=== PATIENT | male | born 1980 ===

== ENCOUNTER 2023-04-20 04:10 | Day surgery (SDC) | payer OTHER ==
[2023-04-20 10:35] VITALS: BMI 31.5
[2023-04-20] MEDS ORDERED: MIDAZOLAM HCL 2 MG/2 ML SINGLE DOSE VIAL ONE (12:58)
[2023-04-20] MEDS ORDERED: FENTANYL CITRATE/PF 50 MCG/ML VIAL ONE ×6 (12:58→15:00)
[2023-04-20] MEDS ORDERED: PROPOFOL 20 ML ONE ×2 (12:58→13:09)
[2023-04-20] MEDS ORDERED: ceFAZolin SODIUM 1 GM VIAL ONE (13:16)
[2023-04-20] MEDS ORDERED: ceFAZolin SODIUM 1 GM VIAL IVPB ONE (13:18)
[2023-04-20] MEDS ORDERED: ONDANSETRON 4 MG/2 ML VIAL ONE (13:24)
[2023-04-20] MEDS ORDERED: DEXAMETHASONE SOD PHOSPHATE 4 MG/1 ML VIAL ONE (13:24)
[2023-04-20] MEDS ORDERED: KETOROLAC TROMETHAMINE 30 MG/1 ML VIAL ONE (13:53)
[2023-04-20] MEDS ORDERED: ACETAMINOPHEN INJECTION 100 ML IVPB ONE (13:56)
[2023-04-20] MEDS ORDERED: ACETAMINOPHEN 1000 MG/100 ML BAG IVPB ONE (14:01)
[2023-04-20] MEDS ORDERED: BACITRACIN ZINC 15 GM TUBE TOPICAL OINTMENT TP ONE (14:13)
[2023-04-20] MEDS ORDERED: ONDANSETRON 4 MG/2 ML VIAL IVPUSH PRN (14:43)
[2023-04-20] MEDS ORDERED: oxyCODONE HCL 5 MG TABLET PO PRN (14:43)
[2023-04-20] MEDS ORDERED: LACTATED RINGERS SOLUTION 1,000 ML IV SCH (14:45)
[2023-04-20 16:12] VITALS: TEMP 98
[2023-04-20] MEDS ORDERED: oxyCODONE HCL 5 MG TABLET ONE (16:26)
[2023-04-20 18:31] VITALS: BP 118/72; PULSE 70; RESP 20
== END 2023-04-20 16:46 | disposition home or self-care (01) ==
LOC: JASU-SURG 04:10
PROVIDERS: ATTEND Urology
PROC: 0V503ZZ Destruction of Prostate, Percutaneous Approach (ICD-10-PCS; principal; 2023-04-20 13:00)
DX: C61 Malignant neoplasm of prostate (principal)
CPT/HCPCS: 55873; C2618; 94760; C1769